=== PATIENT | male | born 1950 | race Caucasian/White ===

== ENCOUNTER 2017-11-24 14:08 | Observation (INO) ==
[2017-11-24 14:42] LABS: Basophils # 0.1 K/mcL (0.0-0.2); Basophils % 0.8 %; Eosinophils # 0.6 K/mcL (0.0-0.6); Immature Granulocytes % 0.3 % (0-4); Lymphocytes % 25.9 %; Mean Corpuscular Hemoglobin 29.5 pg (28.0-33.3); Mean Corpuscular Volume 92.1 fL (83.0-100.0); Mean Platelet Volume 9.6 fL (9.4-12.4); Monocytes # 0.8 K/mcL (0.0-1.3); Monocytes % 9.9 %; Neutrophils # 4.3 K/mcL (1.6-8.9); Platelet Count 217 K/mcL (140-400); Red Blood Count 5.43 M/mcL (4.19-5.50); Red Cell Distribution Width 14.5 % (11.5-14.5); Segmented Neutrophils % 55.1 %
[2017-11-24 15:03] LABS: Troponin I < 0.03 ng/mL (< 0.04)
[2017-11-24] MEDS ORDERED: *HR* Metoprolol 5 MG/5 ML VIAL IVP ONE (15:09)
[2017-11-24 15:19] LABS: BUN/Creatinine Ratio 10 (6-26); Blood Urea Nitrogen 12 mg/dL (8-23); Calcium 9.5 mg/dL (8.6-10.3); Carbon Dioxide 23 mEq/L (23-29); Chloride 105 mEq/L (98-107); Glucose 112 mg/dL (70-105); Osmolality,Calculated 285 (280-300); Potassium 4.3 mEq/L (3.5-5.1); Sodium 137 mEq/L (136-145); eGFR For African Americans > 60 (> 60); eGFR For Non-African Americans > 60 (> 60)
--- NOTE | 2017-11-24 15:35 | Emergency Department Note ---
Disposition Clinical Impression: Chest pain Qualifiers: Chest pain type: unspecified Qualified Code(s): R07.9 - Chest pain, unspecified Hypertension Qualifiers: Hypertension type: unspecified Qualified Code(s): I10 - Essential (primary) hypertension Disposition: Admitted As Inpatient Condition: Good Referrals: Osman Martino Jr, MD [Primary Care Provider] - Forms: ED Satisfaction Letter General Adult HPI - General Chief complaint: ED Chest Pain Stated complaint: High BP/sob/zeus Time Seen by Provider: 11/24/17 15:01 Source: patient Limitations: no limitations Nursing Notes Reviewed: Yes Vital Signs Reviewed: Yes - History of Present Illness HPI Narrative: 67-year-old male who reports that for the last proximally 2 weeks he has had hypertension. He does not have a history of hypertension and has seen his primary care physician who is having them log his blood pressures. His blood pressures have been elevated up to level of 200 systolic. Yesterday he then developed left-sided chest pain with radiation to the left shoulder and left neck. He does not have a history of chest pain and does not have a history of coronary arterial disease. His only past medical history is BPH and asthma. The only medications he takes his Flomax and albuterol. He is not having any lightheadedness. He is having shortness of breath. No nausea or vomiting or diaphoresis. Radiation: non-radiation Pain Severity: moderate Pain Scale: 5 Improves with: nothing Worsens with: nothing Associated symptoms: Reports: denies other symptoms Treatments Prior to Arrival: none - Related Data Home Medications Medication Instructions Recorded Confirmed 19 Tablet 11/27/16 11/27/16 Previous Rx's Medication Instructions Recorded Azithromycin [Zithromax] 250 mg PO DAILY #6 tablet 11/27/16 Benzonatate [Tessalon] 200 mg PO TID PRN #30 capsule 11/27/16 methylPREDNISolone [Medrol] 4 mg PO TAPER #21 tablet 11/27/16 Allergies Allergy/AdvReac Type Severity Reaction Status Date / Time Sulfa (Sulfonamide Allergy Hives Verified 11/24/17 14:12 Antibiotics) All systems ED: reviewed and negative except as stated. Constitutional: Denies: fever Cardiovascular: Reports: chest pain Respiratory: Reports: dyspnea. Denies: cough Gastrointestinal: Denies: abdominal pain Integumentary: Denies: rash Past Medical History - Past Medical History Medical history: Reports: asthma, hypertension, kidney stones Psychiatric history: Reports: no psych history - Social History Smoking Status: Never smoker Smokeless Tobacco Status: No Alcohol use: Reports: rarely Drug use: Reports: none Physical Exam - General Limitations: no limitations General appearance: alert - Head Head exam: atraumatic - Eye Eye exam: Present: normal appearance, PERRL - ENT ENT exam: normal exam, normal oropharynx - Neck Neck exam: Present: normal inspection - Chest Chest inspection: Present: normal inspection - Respiratory Respiratory exam: Present: normal lung sounds bilaterally. Absent: respiratory distress - Cardiovascular Cardiovascular exam: Present: normal rhythm, tachycardia - Abdominal Exam Abdominal exam: Present: soft, Non-Tender - Extremities Exam Extremities exam: Present: normal inspection - Neurological Exam Neurological exam: Present: alert, oriented X3 - Skin Skin exam: Present: warm, dry Course Course Narrative: CTA negative for PE/dissection. He received nitroglycerin due to his chest pain which caused his BP to drop to the 80's systolic. However, this made his chest pain completely go away. Repeat EKG shows no changes. Troponin negative. He is currently pain free and his BP has recovered to 115 systolic. Will admit for CP rule out. Vital Signs Temperature 97.7 F 11/24/17 14:12 Pulse Rate 127 11/24/17 14:12 Respiratory Rate 30 11/24/17 14:12 Blood Pressure 205/107 11/24/17 14:12 O2 Sat by Pulse Oximetry 99 11/24/17 14:12 Temperature 97.7 F 11/24/17 14:12 Pulse Rate 74 11/24/17 16:30 Respiratory Rate 20 11/24/17 16:30 Blood Pressure 116/72 11/24/17 16:30 O2 Sat by Pulse Oximetry 95 11/24/17 16:30 Oxygen Delivery Oxygen Delivery Nasal Cannula Medical Decision Making - Medical Records Medical records reviewed: Yes I reviewed the patient's medical records. - Lab Data Lab results reviewed: Yes I reviewed the patient's lab results. Result diagrams: 11/24/17 14:19 11/24/17 14:19 Lab Results 11/24/17 11/24/17 Range/Units 14:19 14:19 WBC 7.8 (4.3-11.1) K/mcL RBC 5.43 (4.19-5.50) M/mcL Hgb 16.0 (12.9-16.9) g/dL Hct 50.0 (37.5-50.1) % MCV 92.1 (83.0-100.0) fL MCH 29.5 (28.0-33.3) pg MCHC 32.0 (31.6-35.5) g/dL RDW 14.5 (11.5-14.5) % Plt Count 217 (140-400) K/mcL MPV 9.6 (9.4-12.4) fL Immature Gran % 0.3 (0-4) % Seg Neutrophils % 55.1 % Lymphocytes % 25.9 % Monocytes % 9.9 % Eosinophils % 8.0 % Basophils % 0.8 % Neutrophils # 4.3 (1.6-8.9) K/mcL Lymphocytes # 2.0 (0.6-4.6) K/mcL Monocytes # 0.8 (0.0-1.3) K/mcL Eosinophils # 0.6 (0.0-0.6) K/mcL Basophils # 0.1 (0.0-0.2) K/mcL Sodium 137 (136-145) mEq/L Potassium 4.3 (3.5-5.1) mEq/L Chloride 105 (98-107) mEq/L Carbon Dioxide 23 (23-29) mEq/L BUN 12 (8-23) mg/dL Creatinine 1.15 (0.70-1.30) mg/dL Est GFR ( Amer) > 60 (> 60) Est GFR (Non-Af Amer) > 60 (> 60) BUN/Creatinine Ratio 10 (6-26) Glucose 112 H (70-105) mg/dL Calculated Osmolality 285 (280-300) Calcium 9.5 (8.6-10.3) mg/dL Troponin I < 0.03 (< 0.04) ng/mL TSH 3.923 (0.340-5.600) mcIU/mL - Radiology Data Radiology results reviewed: Yes I reviewed the patient's radiology results. - EKG Data EKG #1 EKG attestation: Yes I reviewed and interpreted this EKG. EKG shows normal: sinus rhythm Rate: tachycardia [place]/QRS: normal Interpretation: other (Sinus tachycardia. No ST deviation.) EKG #2 EKG attestation: Yes I reviewed and interpreted this EKG. EKG shows normal: sinus rhythm Rate: normal Rhythm: NSR Interpretation: no acute changes Attestation Statement - Attestation Attestation: I examined this patient and my medical decision-making was reviewed with the Resident Physician. I agree with the documented findings, disposition and treatment plan as described except to the extent set forth below. Concerning presentation with upper left chest/left neck/left shoulder pain described as sharp, tachycardic, hypertensive. Significant concern for dissection was present, dose of Lopressor given en route to CT. Quick bedside US was done by me while waiting for a CT table to open up. Procedure, emergency bedside echocardiogram: Procedure performed by me, images obtained and interpreted by me. Cardiac images were very difficult due to pt's body habitus and time constraints. Unable to get a good PS long view, could not assess for dilated aortic root or for flap in descending aorta. Subxyphoid 4- chamber view was adequate. No effusion present, no signs of right heart strain. The left carotid was visulaized with the linear probe, no flap was identified. Was able to visualize down to the level of the clavicle. I accompanied the pt to CT. On my initial review, I did not see findings consistent with dissection and was not able to identify a large central PE. The pt was brought back to the ED still complaining of pain. We began treating for possible ACS and ordered a repeat EKG. At this point, pt is pain free. Troponin negative. Critical care time: I was directly and primarily involved in the care of this patient for 35 minutes excluding procedures.
[2017-11-24 15:40] LABS: Thyroid Stimulating Hormone 3.923 mcIU/mL (0.340-5.600)
[2017-11-24] MEDS: Nitroglycerin 0.4 MG TAB.SUBL SL PRN ×2 (15:42→15:47)
[2017-11-24] MEDS ORDERED: 0.9 % Sodium Chloride 1,000 ML IVC ONE (16:00)
[2017-11-24] MEDS ORDERED: 0.9 % Sodium Chloride 1,000 ML ONE (16:01)
[2017-11-24] MEDS ORDERED: Aspirin 81 MG TAB.CHEW PO STA (17:07)
[2017-11-24] MEDS ORDERED: *HR* Metoprolol 5 MG/5 ML VIAL IVP PRN (17:11)
[2017-11-24] MEDS ORDERED: Naloxone 0.4 MG/ML INJ IVP PRN (17:13)
--- NOTE | 2017-11-24 17:20 | Internal Med History&Physical ---
<John Paul Crump - Last Filed: 11/24/17 17:45> Date of Encounter: 11/24/17 Time of Encounter: 17:18 Assessment and Plan (1) Chest pain Current visit: Yes Status: Acute ASSESSMENT: - Presents today with left sided chest pain described as intermittently sharp. Chest pain is worsened with activity and radiates to the left shoulder and left neck. He is reporting shortness of breath and diaphoresis. He was given 1 SL nitro and reports resolution of chest pain. However per my assessment he is now beginning to feel some tightness. The chest tightness could also be r/t his h/o asthma. Risk factors include Obesity and HTN. EKG sinus tachy without st elevation or depression. PLAN: - cardiac enzymes x 2 q 6 hr - EKG now and in AM - ASA 324 now, then 81mg daily - Metoprolol 5mg IVP for SBP >160 - O2 by NC to keep SpO2 greater than 92% - CBCD, BMP in AM - Fasting lipids - SL nitro for pain - Resume - Heparin 5000 U SQ BID - 2D Echo - Nuclear stress in am - NPO after midnight, no caffeine or nicotine - Continuous tele and spo2 monitoring; NC PRN for SOB - hold cardio consult until results of TTE and stress - CBCD, BMP in tHE am Qualifiers: Chest pain type: unspecified Qualified Code(s): R07.9 - Chest pain, unspecified (2) Hypertensive urgency Current visit: Yes Status: Resolved Initially presented with HTN urgency with SBP of 205/107. HTN improved with 1 SL Nitro and he then became hypotensive but quickly rebounded with an SBP of 115. He is now hemodynamiclaly stable. As HTN improved CP improved. No prior h/o HTN, but he is reporting HTN for the last week. He has been keep a journal of his BP and working with his PCP to improve his BP. He has an outpatient appointment scheduled with cardiology -BP has now improved -Metoprolol IVP Q6hr PRN for SBP >160 -tele (3) Asthma Current visit: Yes Status: Acute Stable, continue bronchodilators Qualifiers: Asthma severity: mild Asthma persistence: intermittent Asthma complication type: unspecified Qualified Code(s): J45.20 - Mild intermittent asthma, uncomplicated (4) DVT prophylaxis Current visit: Yes Status: Acute Heparin 5000 units SC BID Internal Medicine - H&P: HPI Chief complaint: chest pain, hypertension Admitted From: Home Plans for Post Hospital Care: Home History of present illness: Mr. Quarles is a 67 year old male with a PMH of asthma, hypertension, and kidney stones. He presents today to [facility] with hypertension. He reports that he has been having issues with his blood pressure being high for the last week. He reports that he has been working with his primary care provider and keeping a journal and trying to improve his blood pressure. However, last night blood pressure continue to increase elevating the levels greater than 200 systolically twitches and developed left-sided sharp chest pain with radiation to the left neck and shoulder. He does not have any prior heart history. He Reports that the chest pain is exacerbated with activity and associated with shortness of breath as well as diaphoresis. He denies any recent cardiac workup. He denies any constitutional symptoms, abdominal pain, N/V/D, extremity swelling/pain, lightheadedness, syncope, palpitations, or irregular rhythm. CXR in ED shows no acute pulmonary disease, initial troponin negative. While in the ED he was given 1 SL nitro and his BP improved and his chest pain subsided. Past Med Surg Social Fam HX - Past Medical History Medical history: asthma, hypertension, kidney stones Psychiatric history: no psych history - Social History Smoking Status: Never smoker Smokeless Tobacco Status: No Alcohol use: rarely Drug use: none - Family History Father Living Status: Hx Family Cardiac Disorders: Yes (CHF) Mother Hx Family Endocrine Disorder: Yes (diabetes) Internal Medicine - H&P: Meds Albuterol Sulfate [Proventil Hfa] 2 puff IH QID PRN 11/24/17 [History] Aspirin Enteric Coated [Aspirin EC] 162 mg PO DAILY 11/24/17 [History] Diclofenac Sodium [Voltaren] 75 mg PO BID 11/24/17 [History] Multivitamin [One Daily Multivitamin] 1 each PO DAILY 11/24/17 [History] Nitroglycerin [Nitrostat] 0.4 mg PO Q5M PRN 11/24/17 [History] [place]-3/Dha/Epa/Fish Oil [Fish Oil 1,000 mg Softgel] 1,000 mg PO DAILY 11/24/17 [History] Tamsulosin [Flomax] 0.4 mg PO DAILY 11/24/17 [History] 3 Allergy/AdvReac Type Severity Reaction Status Date / Time Sulfa (Sulfonamide Allergy Hives Verified 11/24/17 14:12 Antibiotics) All Systems PM: A 10-system review of systems was performed and is negative for pertinent findings except as documented above in the HPI. - Constitutional Constitutional: as per HPI - EENT Eyes: no change in vision, no discharge, no pain, no photophobia Ears: no ear discharge, no ear pain, no tinnitus Nose, mouth and throat: no dysphagia, no nasal discharge, no neck pain, no sore throat - Cardiovascular Cardiovascular ROS IM: as per HPI, chest pain, diaphoresis, dyspnea, dyspnea on exertion, no edema, no irregular heart rhythm, no lightheadedness, no orthopnea , no palpitations, no syncope - Respiratory Respiratory: cough (non-productive h/o asthma; reports cough as chronic), dyspnea, dyspnea on exertion, no hemoptysis, no wheezing, no pain on inspiration , no chest congestion, no excessive phlegm production, no pain with cough - Gastrointestinal Gastrointestinal: no abdominal pain, no diarrhea, no hematemesis, no hematochezia, no melena, no nausea, no vomiting - Genitourinary Genitourinary ROS male: no difficulty urinating, no dysuria, no flank pain - Musculoskeletal Musculoskeletal ROS IM: no numbness, no tingling - Integumentary Integumentary IM: no rash, no unusual bruising - Neurological Neurological ROS: no confusion, no convulsions, no focal weakness, no numbness, no tingling, no tremor(s) - Constitutional Vitals: Temp Pulse Resp BP Pulse Ox 97.7 F 74 20 123/81 95 11/24/17 14:12 11/24/17 16:30 11/24/17 17:08 11/24/17 17:08 11/24/17 16:30 General appearance: Present: cooperative, A&O X 3, no acute distress, obese, answers questions appropriately - Head Head exam: Present: atraumatic, normocephalic - Eye Eye exam: Present: PERRL, conjuntiva pink, sclera anicteric Pupils: Present: PERRL - Neck Neck exam general surgery: Present: supple, trachea midline. Absent: lymphadenopathy - Respiratory Respiratory exam: Present: CTAB. Absent: accessory muscle use, rales, rhonchi, wheezes - Cardiovascular Cardiovascular exam: Present: RRR, +S1, +S2. Absent: diastolic murmur, gallop, rubs, systolic murmur - GI/Abdominal GI/Abdominal exam: Present: normal bowel sounds, soft, no peritoneal signs. Absent: distended, tenderness Additional comments: round, obese - Extremities Exam Extremities exam: Present: warm, radial pulses palpable and symmetrical. Absent : calf tenderness, cyanotic, pedal edema - Neurological Exam Neurological exam: Present: alert, oriented X3. Absent: pronater drift, facial droop, speech deficit - Skin Skin exam: Present: dry, intact Internal Med - H&P Results - Labs CBC & Chem 7: 11/24/17 14:19 11/24/17 14:19 - EKG Data -: EKG Interpreted by Myself EKG shows normal: sinus rhythm Rate: tachycardia - EKG Data Prior EKG available for review: yes When compared to previous EKG: there is no significant change EKG comments: Sinus tachycardia no ST elevation or depression 11/24/17 17:23 - Impressions Impressions Chest X-Ray 11/24/17 14:19 IMPRESSION: No acute process. D/ / Itzel Flowers MD / Itzel Flowers MD Interpreting Provider: Itzel Flowers MD Chest CTA 11/24/17 15:01 IMPRESSION: Negative for acute pulmonary embolism. Moderate to severe airway inflammation may be seen with asthma, bronchitis or smoking. No consolidative airspace disease. Asymmetric gynecomastia. Fatty liver. D/ / Atilio Freeman / Atilio Freeman Interpreting Provider: Atilio Freeman <David Stringer - Last Filed: 11/24/17 18:34> Date of Encounter: 11/24/17 Internal Medicine - H&P: HPI History of present illness: Mr. Quarles is a 67 year old male All Systems PM: A 10-system review of systems was performed and is negative for pertinent findings except as documented above in the HPI. - Constitutional Vitals: Temp Pulse Resp BP Pulse Ox 98.5 F 90 18 117/80 92 11/24/17 17:51 11/24/17 17:51 11/24/17 17:51 11/24/17 17:51 11/24/17 17:51 Internal Med - H&P Results - Labs CBC & Chem 7: 11/24/17 14:19 11/24/17 14:19 - Attending Attestation I have personally performed a face to face evaluation on this patient. I have reviewed and agree with the care plan provided by OFFICE SUPPORT SPECIALIST John Paul Crump. History and Exam by me shows: Mr. Quarles is a 67 year old male with a PMH of asthma, hypertension, and kidney stones pt presented to ER with Lft chest wall pain and SOB from last 10 days. He was give Nitro in the ER and his chest pain resolved now. Gen: A, A, O x 3 Chest: Diminished BS b/l, no crackles..Mild wheezing Heart: S1S2+ RRR No murmus a/p 1. Acute CP Need to r/o ACS on Tele check serial trop r/o PE Stress test in AM 2. Asthma.. Mild exacerbation will put him on kaushal duoneb and Steroid nebs too
[2017-11-24] MEDS: *HR* Heparin 5,000 UNIT/ML VIAL SQ SCH (18:11)
[2017-11-24] MEDS: Ipratropium/Albuterol Neb 3 ML IH PRN (19:24)
[2017-11-24 19:39] LABS: INR 1.1; Prothrombin Time 11.6 Seconds (9.4-12.1)
[2017-11-24] MEDS: Budesonide Neb 0.5 MG/2 ML IH SCH (21:30)
[2017-11-24] MEDS ORDERED: Budesonide Neb 0.5 MG/2 ML IH SCH (22:00)
[2017-11-25 01:21] LABS: Basophils % 0.5 %; Eosinophils # 0.6 K/mcL (0.0-0.6); Eosinophils % 8.5 %; Immature Granulocytes % 0.3 % (0-4); Lymphocytes # 2.1 K/mcL (0.6-4.6); Lymphocytes % 29.1 %; Mean Corpuscular HGB Conc 31.8 g/dL (31.6-35.5); Mean Corpuscular Hemoglobin 29.4 pg (28.0-33.3); Mean Corpuscular Volume 92.6 fL (83.0-100.0); Mean Platelet Volume 10.2 fL (9.4-12.4); Monocytes # 0.7 K/mcL (0.0-1.3); Monocytes % 9.7 %; Neutrophils # 3.8 K/mcL (1.6-8.9); Platelet Count 205 K/mcL (140-400); Red Blood Count 4.86 M/mcL (4.19-5.50); Red Cell Distribution Width 14.6 % (11.5-14.5); Segmented Neutrophils % 51.9 %
[2017-11-25 01:27] LABS: Hemoglobin 14.3 g/dL (12.9-16.9)
[2017-11-25 01:40] LABS: BUN/Creatinine Ratio 11 (6-26); Blood Urea Nitrogen 13 mg/dL (8-23); Calcium 8.7 mg/dL (8.6-10.3); Carbon Dioxide 26 mEq/L (23-29); Chloride 107 mEq/L (98-107); Chol/HDL Ratio 6.5 (0-4.9); Cholesterol 214 mg/dL (< 200); Glucose 132 mg/dL (70-105); HDL Cholesterol 33 mg/dL (40-59); LDL Cholesterol,Calculated 150 mg/dL (0-99); Osmolality,Calculated 290 (280-300); Potassium 4.1 mEq/L (3.5-5.1); Sodium 139 mEq/L (136-145); Triglycerides 154 mg/dL (< 150); eGFR For African Americans > 60 (> 60); eGFR For Non-African Americans 59 (> 60)
[2017-11-25] MEDS: Ipratropium/Albuterol Neb 3 ML IH PRN ×2 (04:57→15:11)
[2017-11-25] MEDS: *HR* Heparin 5,000 UNIT/ML VIAL SQ SCH ×2 (05:54→17:19)
[2017-11-25] MEDS ORDERED: Regadenoson 0.4 MG/5 ML SYRINGE IVP ONE (06:51)
[2017-11-25] MEDS: Budesonide Neb 0.5 MG/2 ML IH SCH ×2 (09:48→21:15)
[2017-11-25] MEDS ORDERED: Perflutren Lipid Microsphere 1.3 ML in 0.9 % Sodium Chloride 8.7 ML IVP ONE (10:42)
[2017-11-25] MEDS: Aspirin Enteric Coated 81 MG Tablet PO SCH (11:51)
[2017-11-25] MEDS: Multivit/Ca/Min/Fe/FA 1 TAB TABLET PO SCH (11:52)
--- NOTE | 2017-11-25 15:42 | Internal Med Progress Note ---
Date of Encounter: 11/25/17 Time of Encounter: 15:40 - Assessment and plan (1) Asthma Current Visit: Yes Status: Acute Assessment and plan: Continue bronchodilators satting well on 1 L nasal cannula Qualifiers: Asthma severity: mild Asthma persistence: intermittent Asthma complication type: unspecified Qualified Code(s): J45.20 - Mild intermittent asthma, uncomplicated (2) Chest pain Current Visit: Yes Status: Acute Assessment and plan: Presented with left-sided chest pain described as intermittently sharp. Pain worsens with activity and radiated into the left shoulder and left neck. He also had some shortness of breath and sweats. He was given a sublingual nitroglycerin 1 in reporting less chest pain. Slight chest tightness returned and could be related to his asthma. He is obese and has high blood pressure. EKG sinus tachycardia without ST elevation or depression. Troponins are negative. Stress test and process step 1 has been completed, step 2 will be completed on Monday Aspirin 324 mg in the ED and now 81 mg daily Metoprolol 5 mg IV push for systolic blood pressure greater than 150 O2 to keep sats greater than 92%. Next line sublingual nitroglycerin as needed for chest pain Heparin 5000 units subcutaneous twice a day Check an echo Continuous telemetry monitoring. Monitor labs Lipid panel triglycerides 154, cholesterol 214, LDL 150, HDL 33, TSH 3.9-3 Qualifiers: Chest pain type: unspecified Qualified Code(s): R07.9 - Chest pain, unspecified (3) DVT prophylaxis Current Visit: Yes Status: Acute Assessment and plan: Heparin subcutaneous (4) Hypertension Current Visit: Yes Status: Acute Assessment and plan: Patient was admitted with accelerated hypertension but now his blood pressure is well controlled on his medication regime. According to the note he initially presented with a pressure of 205/107. Blood pressure improved with one sublingual nitroglycerin and then he became hypotensive which quickly rebounded with a systolic blood pressure 1:15. He was then hemodynamically stable. As his high blood pressure improved so did his chest pain. He has no prior history of hypertension but he is reporting high blood pressure for the past week and he has been keeping a journal of his blood pressure and working with his PCP to improve his blood pressure. He has an outpatient appointment scheduled with cardiology. Continue metipranolol IV push every 6 hours when necessary for systolic blood pressure greater than 160. Qualifiers: Hypertension type: essential hypertension Qualified Code(s): I10 - Essential (primary) hypertension (5) Obesity Current Visit: Yes Status: Acute Assessment and plan: Lifestyle changes recommended Qualifiers: Obesity type: unspecified obesity type Serious obesity comorbidity presence : without serious comorbidity Body mass index: BMI 45.0-49.9 Qualified Code( s): E66.9 - Obesity, unspecified; Z68.42 - Body mass index (BMI) 45.0-49.9, adult; Z68.42 - Body mass index (BMI) 45.0-49.9, adult; Z68.42 - Body mass index (BMI) 45.0-49.9, adult; Z68.42 - Body mass index (BMI) 45.0-49.9, adult - Subjective Interval history: Patient is sitting up in the bed on a breathing treatment with some visitors at the bedside. He has no complaints. He has no questions. - Constitutional Vitals: Temp Pulse Resp BP Pulse Ox 97.6 F 81 16 143/83 94 11/25/17 12:34 11/25/17 12:34 11/25/17 12:34 11/25/17 12:34 11/25/17 12:34 General appearance: Present: cooperative, A&O X 3, no acute distress, obese, answers questions appropriately - Head Head exam: Present: atraumatic, normocephalic - Eye Eye exam: Present: PERRL, conjuntiva pink, sclera anicteric Pupils: Present: PERRL - Neck Neck exam general surgery: Present: supple, trachea midline. Absent: lymphadenopathy - Respiratory Respiratory exam: Present: decreased breath sounds, wheezes. Absent: accessory muscle use, rales, rhonchi - Cardiovascular Cardiovascular exam: Present: RRR, +S1, +S2. Absent: diastolic murmur, gallop, rubs, systolic murmur - GI/Abdominal GI/Abdominal exam: Present: normal bowel sounds, soft, no peritoneal signs. Absent: distended, tenderness - Extremities Exam Extremities exam: Present: pedal edema, warm, radial pulses palpable and symmetrical. Absent: calf tenderness, cyanotic Additional comments: Venous stasis changes sugars both lower extremities - Neurological Exam Neurological exam: Present: CN II-XII intact, oriented X3, no focal deficits. Absent: pronater drift, facial droop, speech deficit - Skin Skin exam: Present: dry, intact, warm Internal Medicine: Result - Labs CBC & Chem 7: 11/25/17 00:45 11/25/17 00:45 Labs: Short CBC 11/25/17 Range/Units 00:45 WBC 7.3 (4.3-11.1) K/mcL Hgb 14.3 D (12.9-16.9) g/dL Hct 45.0 (37.5-50.1) % Plt Count 205 (140-400) K/mcL Neutrophils # 3.8 (1.6-8.9) K/mcL BMP 11/25/17 00:45 Sodium 139 Potassium 4.1 Chloride 107 Carbon Dioxide 26 BUN 13 Creatinine 1.23 Glucose 132 H Calcium 8.7 Cardiac Enzymes 11/24/17 11/25/17 Range/Units 18:43 00:45 Troponin I < 0.03 < 0.03 (< 0.04) ng/mL - ABG Interpretation ABG results: PT/INR, D-dimer PT 11.6 Seconds (9.4-12.1) 11/24/17 18:43 Consult Discharge Plan - Plan Referrals: Osman Martino Jr, MD [Primary Care Provider] -
[2017-11-25] MEDS ORDERED: *HR* Dextrose 50 % in Water (Syg) 50 ML SYRINGE IVP PRN (17:35)
[2017-11-25] MEDS ORDERED: D5% in Water 1,000 ML IVC PRN (17:35)
[2017-11-25] MEDS ORDERED: Dextrose Gel 15 GM/37.5 ML TUBE PO PRN ×2 (17:35)
[2017-11-26] MEDS: *HR* Heparin 5,000 UNIT/ML VIAL SQ SCH ×2 (05:37→17:08)
[2017-11-26 05:56] LABS: Hematocrit 44.4 % (37.5-50.1); Hemoglobin 14.1 g/dL (12.9-16.9); Mean Corpuscular HGB Conc 31.8 g/dL (31.6-35.5); Mean Corpuscular Hemoglobin 29.6 pg (28.0-33.3); Mean Corpuscular Volume 93.1 fL (83.0-100.0); Mean Platelet Volume 10.3 fL (9.4-12.4); Platelet Count 187 K/mcL (140-400); Red Blood Count 4.77 M/mcL (4.19-5.50); Red Cell Distribution Width 14.4 % (11.5-14.5)
[2017-11-26] MEDS: Ipratropium/Albuterol Neb 3 ML IH PRN ×3 (06:04→19:41)
[2017-11-26 06:17] LABS: BUN/Creatinine Ratio 13 (6-26); Blood Urea Nitrogen 13 mg/dL (8-23); Calcium 8.8 mg/dL (8.6-10.3); Carbon Dioxide 24 mEq/L (23-29); Chloride 107 mEq/L (98-107); Glucose 136 mg/dL (70-105); Osmolality,Calculated 286 (280-300); Sodium 137 mEq/L (136-145); eGFR For African Americans > 60 (> 60); eGFR For Non-African Americans > 60 (> 60)
[2017-11-26] MEDS: Insulin LISPRO 300 UNITS/3 ML VIAL SQ SCH ×3 (08:38→17:05)
[2017-11-26] MEDS: Multivit/Ca/Min/Fe/FA 1 TAB TABLET PO SCH (08:39)
[2017-11-26] MEDS: Aspirin Enteric Coated 81 MG Tablet PO SCH (08:39)
[2017-11-26] MEDS: Budesonide Neb 0.5 MG/2 ML IH SCH ×2 (09:36→19:41)
[2017-11-26 10:53] LABS: Estimated Average Glucose 128 mg/dl; Hemoglobin A1C 6.1 %
--- NOTE | 2017-11-26 13:16 | Internal Med Progress Note ---
Date of Encounter: 11/26/17 Time of Encounter: 13:13 - Assessment and plan (1) Asthma Current Visit: Yes Status: Acute Assessment and plan: Continue bronchodilators, satting well on room air Qualifiers: Asthma severity: mild Asthma persistence: intermittent Asthma complication type: unspecified Qualified Code(s): J45.20 - Mild intermittent asthma, uncomplicated (2) Chest pain Current Visit: Yes Status: Acute Assessment and plan: Presented with left-sided chest pain described as intermittently sharp. Pain worsens with activity and radiated into the left shoulder and left neck. He also had some shortness of breath and sweats. He was given a sublingual nitroglycerin 1 in reporting less chest pain. Slight chest tightness returned and could be related to his asthma. He is obese and has high blood pressure. EKG sinus tachycardia without ST elevation or depression. Troponins are negative. Stress test and process step 1 has been completed, step 2 will be completed on Monday Aspirin 324 mg in the ED and now 81 mg daily Metoprolol 5 mg IV push for systolic blood pressure greater than 150 O2 to keep sats greater than 92%. Next line sublingual nitroglycerin as needed for chest pain Heparin 5000 units subcutaneous twice a day echo report reviewed with LVEF 55-60%. Not all LV wall segments are optimally visualized. Mild left ventricular diastolic dysfunction. RV is dilated. Function appears normal. Mild mitral regurgitation. Suboptimal TR signal to estimate RVSP. IVC is not visualized. Left ventricular wall motion rest echo findings are the apex, apical lateral mid inferior lateral and basal inferior lateral martinez were not visualized I will other wall segments showed normal motion Continuous telemetry monitoring. Monitor labs Lipid panel triglycerides 154, cholesterol 214, LDL 150, HDL 33, TSH 3.9-3 Qualifiers: Chest pain type: unspecified Qualified Code(s): R07.9 - Chest pain, unspecified (3) DVT prophylaxis Current Visit: Yes Status: Acute Assessment and plan: Heparin subcut (4) Hypertension Current Visit: Yes Status: Acute Assessment and plan: Patient was admitted with accelerated hypertension but now his blood pressure is well controlled on his medication regime. According to the note he initially presented with a pressure of 205/107. Blood pressure improved with one sublingual nitroglycerin and then he became hypotensive which quickly rebounded with a systolic blood pressure 1:15. He was then hemodynamically stable. As his high blood pressure improved so did his chest pain. He has no prior history of hypertension but he is reporting high blood pressure for the past week and he has been keeping a journal of his blood pressure and working with his PCP to improve his blood pressure. He has an outpatient appointment scheduled with cardiology. Continue metipranolol IV push every 6 hours when necessary for systolic blood pressure greater than 160. Blood pressure is currently well controlled He was to see dental instrument maker on the as an outpatient for blood pressure consult Qualifiers: Hypertension type: essential hypertension Qualified Code(s): I10 - Essential (primary) hypertension (5) Obesity Current Visit: Yes Status: Acute Assessment and plan: Lifestyle changes diet and activity recommended Qualifiers: Obesity type: unspecified obesity type Serious obesity comorbidity presence : without serious comorbidity Body mass index: BMI 45.0-49.9 Qualified Code( s): E66.9 - Obesity, unspecified; Z68.42 - Body mass index (BMI) 45.0-49.9, adult; Z68.42 - Body mass index (BMI) 45.0-49.9, adult; Z68.42 - Body mass index (BMI) 45.0-49.9, adult; Z68.42 - Body mass index (BMI) 45.0-49.9, adult (6) Hyperglycemia Current Visit: Yes Status: Acute Assessment and plan: Accu checks before meals and at bedtime with low-dose sliding scale coverage as needed. Patient is not a known diabetic Hgb A1c is 6.1 Defer to primary care physician for management - Subjective Interval history: Patient is sitting up getting ready to take a shower. He has no voiced complaints. He said he has a twinge of midsternal chest discomfort every once in a while but nothing consistent. No radiation. No sweats, fever, chills, abdominal pain, shortness of breath or syncope/dizziness. - Constitutional Vitals: Temp Pulse Resp BP Pulse Ox 98.7 F 60 16 124/78 95 11/26/17 11:44 11/26/17 11:44 11/26/17 11:44 11/26/17 11:44 11/26/17 11:44 General appearance: Present: cooperative, A&O X 3, no acute distress, obese, answers questions appropriately - Head Head exam: Present: atraumatic, normocephalic - Eye Eye exam: Present: PERRL, conjuntiva pink, sclera anicteric Pupils: Present: PERRL - Neck Neck exam general surgery: Present: supple, trachea midline. Absent: lymphadenopathy - Respiratory Respiratory exam: Present: CTAB. Absent: accessory muscle use, rales, rhonchi, wheezes - Cardiovascular Cardiovascular exam: Present: RRR, +S1, +S2. Absent: diastolic murmur, gallop, rubs, systolic murmur - GI/Abdominal GI/Abdominal exam: Present: normal bowel sounds, soft, no peritoneal signs. Absent: distended, tenderness - Extremities Exam Extremities exam: Present: warm, radial pulses palpable and symmetrical. Absent : calf tenderness, cyanotic, pedal edema - Neurological Exam Neurological exam: Present: CN II-XII intact, oriented X3, no focal deficits. Absent: pronater drift, facial droop, speech deficit - Skin Skin exam: Present: dry, intact, normal color, warm Internal Medicine: Result - Labs CBC & Chem 7: 11/26/17 04:41 11/26/17 04:41 Labs: Short CBC 11/26/17 Range/Units 04:41 WBC 7.0 (4.3-11.1) K/mcL Hgb 14.1 (12.9-16.9) g/dL Hct 44.4 (37.5-50.1) % Plt Count 187 (140-400) K/mcL [facility] 11/26/17 04:41 Sodium 137 Potassium 4.0 Chloride 107 Carbon Dioxide 24 BUN 13 Creatinine 1.02 Glucose 136 H Calcium 8.8 - ABG Interpretation ABG results: PT/INR, D-dimer PT 11.6 Seconds (9.4-12.1) 11/24/17 18:43 - Impressions Impressions Echocardiogram 11/24/17 17:07 Impressions: LVEF 55-60%. Not all LV wall segments are optimally visualized. Mild left ventricular diastolic dysfunction. RV is dilated. Function appears normal. Mild mitral regurgitation. Suboptimal TR signal to estimate RVSP. IVC is not visualized. Left Ventricular Wall Motion: Rest Echo Findings The apex, apical lateral, mid inferior lateral and basal inferior lateral martinez were not visualized. All other wall segments showed normal motion. Findings: Study Quality * Technically sub-optimal due to body habitus. ECG Findings * Normal sinus rhythm. Left Ventricle * Mild left ventricular diastolic dysfunction. * LVEF 55-60%. * Normal LV size. * Suboptimal measurements for wall thickness in PLAX view. Right Ventricle * RV is dilated. Function appears normal. Left Atrium * Left atrium is not well visualized. Right Atrium * Right atrium is not well visualized. Aortic Valve * No aortic regurgitation. * Aortic valve not well visualized. * No aortic stenosis. Mitral Valve * Normal mitral valve structure. * No mitral stenosis. * Mild mitral regurgitation. Tricuspid Valve * No tricuspid regurgitation. * Tricuspid valve not well visualized. Pulmonic Valve * Pulmonic valve is not well visualized. * No pulmonic stenosis. * No pulmonic regurgitation. Pulmonary Artery * Pulmonary artery not well visualized. Aorta * Not well visualized. Pericardium * There is no pericardial effusion present. Interatrial Septum * Interatrial septum not well evaluated. IVC * The IVC is not well evaluated. Consult Discharge Plan - Plan Referrals: Osman Martino Jr, MD [Primary Care Provider] -
[2017-11-27] MEDS: *HR* Heparin 5,000 UNIT/ML VIAL SQ SCH ×2 (05:44→16:54)
[2017-11-27] MEDS: Ipratropium/Albuterol Neb 3 ML IH PRN ×4 (05:47→21:56)
[2017-11-27] MEDS: Insulin LISPRO 300 UNITS/3 ML VIAL SQ SCH ×3 (07:21→16:53)
[2017-11-27] MEDS: Multivit/Ca/Min/Fe/FA 1 TAB TABLET PO SCH (08:25)
[2017-11-27] MEDS: Aspirin Enteric Coated 81 MG Tablet PO SCH (08:25)
[2017-11-27] MEDS ORDERED: Acetaminophen 325 MG TABLET PO PRN (08:32)
--- NOTE | 2017-11-27 10:20 | Cardiology Consult Note ---
<Maricel Hou - Last Filed: 11/27/17 10:38> Date of Encounter: 11/27/17 Time of Encounter: 10:00 Assessment and Plan (1) Chest pain Current Visit: Yes Status: Acute Per cardiology: -Admitted with exdertional chest pain. -Also noted increased shortness of breath and worsening fatigue. -Troponins negative x3. -NO acute ischemic ECG changes. -Stress test abnormal. -TTE with LVEF 55-60%, mild diastolic dysfunction, RV dilated with normal function, mild MR, no visualized segmental wall motion abnormalities. -On asa and simvastatin. -With concerning symptoms, and abnormal stress test, plan for LHC. Risks versus benefits of LHC explained to pateint and . States understanding and agreeable to proceed. -Will start beta lisandra. Will switch simvastatin to atorvastatin. Will change ASA to 81mg daily. Qualifiers: Chest pain type: unspecified Qualified Code(s): R07.9 - Chest pain, unspecified (2) Abnormal stress test Current Visit: Yes Status: Acute Per cardiology: -Stress with ischemia noted inferior wall. Visual TID. -PLan for LHC, as above. -Further recommendations pending LHC. Discussion w patient/family: The assessment and plan as outlined above was discussed with the patient and/or family members who expressed understanding and agreement. All questions were answered. Thank you for involving us in the care of your patient. Please call with any questions. Discussed and reviewed with . History of Present Illness Consult date: 11/27/17 Requesting physician: Genevieve Pettit Consult reason: abnormal stress Chief complaint: chest pain, shortness of breath History of present illness: Mr. Quarles is a 67 year old male with a relevant past medical history of HTN, obesity. Patient presented to [facility] with complaints of worsening shortness of breath with exertion. States has been occuring for the past 3-4 weeks. Patient also reports intermittent chest pain with exertion. Relieved at rest. Reports worsening fatigue. Denies current chest pain. Patient also states BPs at home have been high. Past Med Surg Social Fam HX - Past Medical History Attestation: Yes The following information was validated with the patient. Source: patient, old records reviewed, obtained from family Medical history: asthma, hypertension, kidney stones Psychiatric history: no psych history - Social History Smoking Status: Never smoker Smokeless Tobacco Status: No Alcohol use: rarely Drug use: none - Family History Father Living Status: Hx Family Cardiac Disorders: Yes (CHF) Mother Hx Family Endocrine Disorder: Yes (diabetes) Medications and Allergies Albuterol Sulfate [Proventil Hfa] 2 puff IH QID PRN 11/24/17 [History] Aspirin Enteric Coated [Aspirin EC] 162 mg PO DAILY 11/24/17 [History] Diclofenac Sodium [Voltaren] 75 mg PO BID 11/24/17 [History] Multivitamin [One Daily Multivitamin] 1 each PO DAILY 11/24/17 [History] Nitroglycerin [Nitrostat] 0.4 mg PO Q5M PRN 11/24/17 [History] [place]-3/Dha/Epa/Fish Oil [Fish Oil 1,000 mg Softgel] 1,000 mg PO DAILY 11/24/17 [History] Tamsulosin [Flomax] 0.4 mg PO DAILY 11/24/17 [History] 3 Allergy/AdvReac Type Severity Reaction Status Date / Time Sulfa (Sulfonamide Allergy Hives Verified 11/24/17 14:12 Antibiotics) All Systems Review: The remainder of the systems were reviewed and are negative - Constitutional Constitutional: fatigue - Cardiovascular Cardiovascular: as per HPI, chest pain with exertion, dyspnea on exertion Physical Examination Vital Signs, Last 4 Hours Temp Pulse Resp BP Pulse Ox 11/27/17 07:17 97.8 F 80 18 146/70 96 General: Conversant, No Apparent Distress HEENT: Atraumatic, Normocephaly, Mucus Membranes Moist Neck: No JVD, Normal carotid pulses Cardiac: Reg Rate and Rhythm, Normal S1 and S2, No Murmur Lungs: Normal Breath Sounds, No Wheeze, Rales, Rhonchi Neuro: Alert and responsive, No focal deficits noted Abdomen: Soft, Non-Tender Skin: No rashes noted on visualized skin Musculoskeletal: No Chest Wall Tenderness Extremities: No Clubbing, No Cyanosis, No Edema, Normal Pulses Results 11/26/17 04:41 11/26/17 04:41 Impressions Echocardiogram 11/24/17 17:07 Impressions: LVEF 55-60%. Not all LV wall segments are optimally visualized. Mild left ventricular diastolic dysfunction. RV is dilated. Function appears normal. Mild mitral regurgitation. Suboptimal TR signal to estimate RVSP. IVC is not visualized. Left Ventricular Wall Motion: Rest Echo Findings The apex, apical lateral, mid inferior lateral and basal inferior lateral martinez were not visualized. All other wall segments showed normal motion. Findings: Study Quality * Technically sub-optimal due to body habitus. ECG Findings * Normal sinus rhythm. Left Ventricle * Mild left ventricular diastolic dysfunction. * LVEF 55-60%. * Normal LV size. * Suboptimal measurements for wall thickness in PLAX view. Right Ventricle * RV is dilated. Function appears normal. Left Atrium * Left atrium is not well visualized. Right Atrium * Right atrium is not well visualized. Aortic Valve * No aortic regurgitation. * Aortic valve not well visualized. * No aortic stenosis. Mitral Valve * Normal mitral valve structure. * No mitral stenosis. * Mild mitral regurgitation. Tricuspid Valve * No tricuspid regurgitation. * Tricuspid valve not well visualized. Pulmonic Valve * Pulmonic valve is not well visualized. * No pulmonic stenosis. * No pulmonic regurgitation. Pulmonary Artery * Pulmonary artery not well visualized. Aorta * Not well visualized. Pericardium * There is no pericardial effusion present. Interatrial Septum * Interatrial septum not well evaluated. IVC * The IVC is not well evaluated. Active Medications Acetaminophen (Tylenol) 650 mg PO Q6HR PRN PRN Reason: Pain Stop: 05/29/18 08:33 Albuterol Sulfate (Albuterol Inhaler) 2 puff IH QID PRN PRN Reason: Shortness Of Breath Stop: 05/26/18 17:13 Albuterol/Ipratropium (Duoneb) 3 ml IH [id number] PRN PRN Reason: Shortness Of Breath Stop: 05/26/18 20:01 Last Admin: 11/27/17 05:47 Dose: 3 ml Aspirin (Aspirin Ec) 162 mg PO DAILY [facility] Stop: 05/27/18 09:01 Last Admin: 11/27/17 08:25 Dose: 162 mg Budesonide (Pulmicort Neb) 0.5 mg IH BIDR ANIYA Stop: 05/26/18 20:01 Last Admin: 11/26/17 19:41 Dose: 0.5 mg Dextrose/Water (Dextrose 50% (Syg)) 25 ml IVP AD PRN PRN Reason: Hypoglycemia Stop: 05/27/18 17:36 Glucagon (Glucagen) 1 mg IM ONCE PRN PRN Reason: Hypoglycemia Stop: 05/27/18 17:36 Glucose (Gluctose) 15 gm PO ONCE PRN PRN Reason: Hypoglycemia Stop: 05/27/18 17:36 Glucose (Gluctose) 30 gm PO ONCE PRN PRN Reason: Hypoglycemia Stop: 05/27/18 17:36 Heparin Sodium (Porcine) (Heparin) 5,000 unit SQ Q12HCO [facility] Stop: 05/26/18 18:01 Last Admin: 11/27/17 05:44 Dose: 5,000 unit Dextrose (Dextrose 5%) 1,000 mls @ 100 mls/hr IVC .Q10H PRN PRN Reason: HYPOGLYCEMIA Stop: 05/27/18 17:36 Insulin Human Lispro (Humalog) 0 units SQ TIDAC [facility] PRN Reason: Protocol Stop: 05/28/18 07:31 Last Admin: 11/27/17 07:21 Dose: Not Given Metoprolol Tartrate (Lopressor) 5 mg IVP Q6H PRN PRN Reason: Hypertension Stop: 05/26/18 17:16 Multivitamins/Calcium (Thera M Plus) 1 tab PO DAILY [facility] Stop: 05/27/18 09:01 Last Admin: 11/27/17 08:25 Dose: 1 tab Naloxone HCl (Narcan) 0.4 mg IVP Q2MIN PRN PRN Reason: SEE COMMENTS Stop: 05/26/18 17:14 Nitroglycerin (Nitroglycerin) 0.4 mg SL Q5MIN PRN PRN Reason: Chest Pain Stop: 05/26/18 15:33 Last Admin: 11/24/17 15:47 Dose: 0.4 mg Simvastatin (Zocor) 40 mg PO QPM [facility] PRN Reason: Protocol Stop: 05/26/18 18:01 Last Admin: 11/26/17 17:08 Dose: 40 mg Tamsulosin HCl (Flomax) 0.4 mg PO DAILY [facility] PRN Reason: Protocol Stop: 05/27/18 09:01 Last Admin: 11/27/17 08:25 Dose: 0.4 mg Laboratory Tests 11/24/17 11/24/17 11/25/17 14:19 18:43 00:45 Hgb Creatinine Troponin I < 0.03 < 0.03 < 0.03 LDL Cholesterol, Calc 11/25/17 11/26/17 11/26/17 00:45 04:41 04:41 Hgb 14.1 Creatinine 1.02 Troponin I LDL Cholesterol, Calc 150 H - Imaging and Cardiology Chest Xray: report reviewed Stress Test: report reviewed Echo: report reviewed - EKG Interpretation EKG results cardiology: personally reviewed (ECG with SR, HR 80.), other ( Telemetry reviewed with average HR previous 12 hours noted to be 84, SR. PVCs and PACs noted.) Consult Discharge Plan - Plan Referrals: Osman Martino Jr, MD [Primary Care Provider] - <Ramana Louis - Last Filed: 11/27/17 12:01> Date of Encounter: 11/27/17 - Attending Attestation 67 YOM with multiple CRFs and typical angina found to have an abnormal stress test with TID and inferior ischemia. R/B/A d/w patient and he agrees to proceed with a [facility] Assessment and Plan Discussion w patient/family: The assessment and plan as outlined above was discussed with the patient and/or family members who expressed understanding and agreement. All questions were answered. Thank you for involving us in the care of your patient. Please call with any questions. History of Present Illness History of present illness: Mr. Quarles is a 67 year old male All Systems Review: The remainder of the systems were reviewed and are negative Physical Examination Vital Signs, Last 4 Hours Temp Pulse Resp BP Pulse Ox 11/27/17 11:44 98.1 F 93 18 169/93 93 11/27/17 10:56 18 93 Results 11/26/17 04:41 11/26/17 04:41
[2017-11-27] MEDS: Budesonide Neb 0.5 MG/2 ML IH SCH ×2 (10:55→21:56)
--- NOTE | 2017-11-27 13:47 | Internal Med Progress Note ---
Date of Encounter: 11/27/17 Time of Encounter: 13:45 - Assessment and plan (1) Asthma Current Visit: Yes Status: Acute Assessment and plan: Continue bronchodilators, 02 sats good on room air Qualifiers: Asthma severity: mild Asthma persistence: intermittent Asthma complication type: unspecified Qualified Code(s): J45.20 - Mild intermittent asthma, uncomplicated (2) Chest pain Current Visit: Yes Status: Acute Assessment and plan: Presented with left-sided chest pain described as intermittently sharp. Pain worsens with activity and radiated into the left shoulder and left neck. He also had some shortness of breath and sweats. He was given a sublingual nitroglycerin 1 in reporting less chest pain. Slight chest tightness returned and could be related to his asthma. He is obese and has high blood pressure. EKG sinus tachycardia without ST elevation or depression. Troponins are negative. Stress test and process step 1 has been completed, step 2 completed and is abnormal. Stress with ischemia noted in inferior wall per report. Cardiology was consult and saw the patient. They recommended a left heart catheter which will be done today 09/04. All questions were answered by the cardiology group Aspirin 324 mg in the ED and now 81 mg daily Metoprolol 5 mg IV push for systolic blood pressure greater than 150 O2 to keep sats greater than 92%. Sublingual nitroglycerin as needed for chest pain Heparin 5000 units subcutaneous twice a day Echo report reviewed with LVEF 55-60%. Not all LV wall segments are optimally visualized. Mild left ventricular diastolic dysfunction. RV is dilated. Function appears normal. Mild mitral regurgitation. Suboptimal TR signal to estimate RVSP. IVC is not visualized. Left ventricular wall motion rest echo findings are the apex, apical lateral mid inferior lateral and basal inferior lateral martinez were not visualized I will other wall segments showed normal motion Continuous telemetry monitoring. Monitor labs Lipid panel triglycerides 154, cholesterol 214, LDL 150, HDL 33, TSH 3.9-3 Continue simvastatin Qualifiers: Chest pain type: unspecified Qualified Code(s): R07.9 - Chest pain, unspecified (3) Hypertension Current Visit: Yes Status: Acute Assessment and plan: Patient was admitted with accelerated hypertension but now his blood pressure is well controlled on his medication regime. Higher today with oral meds held for testing According to the note he initially presented with a pressure of 205/107. Blood pressure improved with one sublingual nitroglycerin and then he became hypotensive which quickly rebounded with a systolic blood pressure 1:15. He was then hemodynamically stable. As his high blood pressure improved so did his chest pain. He has no prior history of hypertension but he is reporting high blood pressure for the past week and he has been keeping a journal of his blood pressure and working with his PCP to improve his blood pressure. He has an outpatient appointment scheduled with cardiology. Continue metipranolol IV push every 6 hours when necessary for systolic blood pressure greater than 160. He was to see pattern fitter on the as an outpatient for blood pressure consult Qualifiers: Hypertension type: essential hypertension Qualified Code(s): I10 - Essential (primary) hypertension (4) Obesity Current Visit: Yes Status: Acute Assessment and plan: Lifestyle changes with weight reduction diet and activity Qualifiers: Obesity type: unspecified obesity type Serious obesity comorbidity presence : without serious comorbidity Body mass index: BMI 45.0-49.9 Qualified Code( s): E66.9 - Obesity, unspecified; Z68.42 - Body mass index (BMI) 45.0-49.9, adult; Z68.42 - Body mass index (BMI) 45.0-49.9, adult; Z68.42 - Body mass index (BMI) 45.0-49.9, adult; Z68.42 - Body mass index (BMI) 45.0-49.9, adult (5) Hyperglycemia Current Visit: Yes Status: Acute Assessment and plan: Accu checks before meals and at bedtime with low-dose sliding scale coverage as needed. Trend while inpatient. Patient is not a known diabetic Hgb A1c is 6.1 Defer to primary care physician for management (6) DVT prophylaxis Current Visit: Yes Status: Acute Assessment and plan: Heparin subcu - Subjective Interval history: Patient is lying in the bed. His family is at the bedside. Preservative Filler Machine Operator was tested and talked about his abnormal stress test. He states it has a lot to absorb. He is denying any complaints of chest pain shortness of breath fever chills abdominal pain or discomfort. He was explained by cardiology the need for a left heart catheter and he is agreeable and that will be done later today. He had a headache earlier that was treated with Tylenol. . - Constitutional Vitals: Temp Pulse Resp BP Pulse Ox 98.1 F 93 18 169/93 93 03/18 11:44 11/27/17 11:44 11/27/17 11:44 11/27/17 11:44 11/27/17 11:44 General appearance: Present: cooperative, A&O X 3, no acute distress, obese, answers questions appropriately - Head Head exam: Present: atraumatic, normocephalic - Eye Eye exam: Present: PERRL, conjuntiva pink, sclera anicteric Pupils: Present: PERRL - Neck Neck exam general surgery: Present: supple, trachea midline. Absent: lymphadenopathy - Respiratory Respiratory exam: Present: CTAB. Absent: accessory muscle use, rales, rhonchi, wheezes - Cardiovascular Cardiovascular exam: Present: RRR, +S1, +S2. Absent: diastolic murmur, gallop, rubs, systolic murmur - GI/Abdominal GI/Abdominal exam: Present: normal bowel sounds, soft, no peritoneal signs. Absent: distended, tenderness - Extremities Exam Extremities exam: Present: warm, radial pulses palpable and symmetrical. Absent : calf tenderness, cyanotic, pedal edema - Neurological Exam Neurological exam: Present: alert, CN II-XII intact, oriented X3, no focal deficits. Absent: pronater drift, facial droop, speech deficit - Skin Skin exam: Present: dry, intact, normal color, warm Internal Medicine: Result - Labs CBC & Chem 7: 11/26/17 04:41 11/26/17 04:41 - ABG Interpretation ABG results: PT/INR, D-dimer PT 11.6 Seconds (9.4-12.1) 11/24/17 18:43 Consult Discharge Plan - Plan Referrals: Osman Martino Jr, MD [Primary Care Provider] -
[2017-11-27] MEDS ORDERED: Verapamil 5 MG/2 ML VIAL ONE (14:58)
[2017-11-27] MEDS ORDERED: *HR* Heparin 10,000 UNIT/10 ML VIAL ONE (14:58)
[2017-11-27] MEDS ORDERED: Nitroglycerin 1,000 MCG/10 ML VIAL IV ONE (14:58)
[2017-11-27] MEDS ORDERED: ISOVUE-370 200 ML INFUS..BTL IV ONE (14:58)
[2017-11-27] MEDS ORDERED: Heparin 1,000 UNITS/500 mL 500 ML ONE (14:58)
[2017-11-27] MEDS ORDERED: 0.9 % Sodium Chloride 1,000 ML ONE ×2 (14:58→16:17)
[2017-11-27] MEDS ORDERED: *HR* FentaNYL (PF) 100 MCG/2 ML VIAL ONE (16:17)
[2017-11-27] MEDS ORDERED: *HR* Midazolam HCl 2 MG/2 ML VIAL ONE ×2 (16:17→16:42)
--- NOTE | 2017-11-27 16:30 | Pre-Sedation Evaluation ---
Pre-sedation evaluation - Pre-sedation checklist Date of procedure: 11/27/17 Procedure: cardiac cath Recent Vitals: Last Vital Signs Temp 98.3 F 11/27/17 15:30 Pulse 86 11/27/17 15:30 Resp 18 11/27/17 15:30 BP 144/73 11/27/17 15:30 Pulse Ox 94 11/27/17 15:30 H&P (including ROS) documented in medical record: Yes Previous reaction to sedatives/anesthetics: No Dietary Status: No solid food in preceding 4 hrs and no liquid in preceding 2 hrs Dentition: No loose teeth or bridges ASA Classification *see protocol: CLASS II-Mild systemic disease Plan of Care: Pt appropriate candidate for procedure/moderate/conscious sedation , Risks/benefits of procedure/sedation discussed w/ patient/family
--- NOTE | 2017-11-27 16:33 | Electrocardiograph Report ---
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
--- NOTE | 2017-11-27 17:10 | Event Note ---
Date of Encounter: 11/27/17 Time of Encounter: 17:10 - Cardiology Event Note Minimal CAD, nml EF.
--- NOTE | 2017-11-27 17:22 | Invasive Diagnostic Lab Proc ---
Name: Jsoe Quarles Date of Study: 11/27/2017 Date: 1950 Ht: 75.2in Medical Record#: [id number] Age: 67 Wt: 388.01lb Gender: Male BSA: 2.91 Order #: [id number] BMI: 48.24 Physicians Procedure Physician: Gabriel Velázquez MD, [facility] Referring MD: Referring MD: Staff Name Position Time In Sites, Tamera RT (R) Monitor 04:19 PM Rishabh Muñoz RN Sales Donor Recruitment Representative 04:19 PM Anahi Cervantes RT (R) Scrub 04:19 PM Indications Indication Abnormal Test - Stress Procedures Performed Procedure L HRT ARTERY/VENTRICLE ANGIO Pre-Procedure Checklist Informed consent is complete signed and on chart. H&P is on chart. ID band is on and ID verified with patient. Patient NPO for procedure The procedure was described for the patient and questions were answered. Blood Pressure: 146/70 ECG is on chart. Plan of Care Patient will tolerate the procedure without complications. Adequate level of comfort will be maintained. Hemodynamics will remain stable Patient will recover from procedure without complications. Respiratory function will be maintained. Cardiac rhythm will remain stable. Patient temperature will be maintained. Patient and/or family have verbalized understanding of the procedure. Patient Education Chief Complaint/Reason for Test: Cardiac Cath Developmental Category: Geriatric (65+ years) Developmentally Appropriate for Age: Yes Learning Barriers: None Education Needs: Procedure Education Method: Verbal Information Taught: Cardiac Cath Educational Evaluation: Able to repeat information Intravenous Access Time IV Size Location DC'd Fluid/Drip Rate Units RN 20g 1 /" Patent On Arrival Lt Arm 0.9NaCl 25 ml/hr Rishabh Muñoz RN Allergies SULFA Vital Signs Time BP (mmHg) HR (bpm) O2 Sat. RR (bpm) LOC 04:24 PM 174 / 110 90 95 % 20 04:28 PM 170 / 108 96 94 % 31 04:33 PM 169 / 106 93 93 % 16 04:38 PM 177 / 106 92 94 % 18 04:42 PM 170 / 103 88 93 % 20 04:47 PM 143 / 93 101 91 % 04:52 PM 135 / 87 97 94 % 18 04:57 PM 141 / 87 97 92 % 22 05:02 PM 130 / 86 97 93 % 17 Procedural Medications Time Medication Dose Units Method Given By 04:19 PM Oxygen 2 L/min nasal cannula Rishabh Muñoz RN 04:33 PM Versed 2 mg Intravenous Rishabh Muñoz RN 04:33 PM Fentanyl 50 mcg Intravenous Rishabh Muñoz RN 04:41 PM Lidocaine 2% 0.5 ml Subcutaneous Gabriel Velázquez MD, FACC 04:42 PM Versed 2 mg Intravenous Rishabh Muñoz RN 04:42 PM Fentanyl 25 mcg Intravenous Rishabh Muñoz RN 04:45 PM Hydralazine 10 mg Intravenous Rishabh Muñoz RN 04:46 PM Oxygen 4 L/min nasal cannula Rishabh Muñoz RN ASA Classification: CLASS II- Mild systemic disease (i.e. well-controlled diabetes, hypertension, asthma, cigarette smoking) Mimi Score Preprocedure Postprocedure Activity 2- Moves 4 extremities sustained head lift Activity 2- Moves 4 extremities sustained head lift Circulation 2- SBP +/= 20 points of pre-anesthetic level Circulation 2- SBP +/= 20 points of pre-anesthetic level Consciousness 2- Awake and alert oriented x 3 Consciousness 2- Awake and alert oriented x 3 O2 Saturation 2- Able to maintain O2 satruation of 92% on room air O2 Saturation 2- Able to maintain O2 satruation of 92% on room air Respiratory 2- Able to deep breathe and cough well Respiratory 2- Able to deep breathe and cough well Total Score 10 Total Score 10 Contrast Agent: Isovue Diagnostic Contrast: 103 ml Total Contrast: 103 ml Fluoro Dose: 803 mGy Procedure Log Time Note Enter By 03:20 PM CathStat 04:11 PM Pt arrived to microbiology lab manager [facility] 04[facility] PM Tamera Spangler RT (R) Position: Monitor Time in: 16:19 tsites 04:19 PM Rishabh Muñoz RN Position: Sales Donor Recruitment Representative Time in: 16:19 tsites 04:19 PM Anahi Cervantes RT (R) Position: Scrub Time in: 16:19 tsites 04:19 PM Patient charges- Angio tray pack, Navilyst 3mm J, Pulse Oximetry and ACIST tubing and transducer tsites 04:19 PM Case Delayed No tsites 04:19 PM Physician arrived 16:19 tsites 04:19 PM Meet and greet completed tsites 04:19 PM Sign in performed according to hospital policy. tsites 04:19 PM Procedure start 16:19 tsites 04:20 PM Time: 16:19 Oxygen on at 2 L/min per nasal cannula by Rishabh Muñoz RN tsites 04:20 PM Hair removed from procedure site in holding area using clippers. Right wrist and right groin prepped with Chloraprep by Anahi Cervantes (R), then patient was draped. Skin intact. tsites 04:20 PM Clinical Presentation: Unstable angina tsites 04:21 PM Vitals capture started with the following parameters, Patient=Adult, Interval=5 min, Initial Tevntjoc=400 mmHg, Deflation Rate=3 mmHg, Cuff placed on Right Arm 04:24 PM HR=90 bpm, XKHU=512/110 mmhg, SpO2=95.0 %, Resp=20 B/min 04:26 PM Recorded ECG: HR=97 Condition=Condition 1 04:28 PM HR=96 bpm, MAKJ=798/108 mmhg, SpO2=94.0 %, Resp=31 B/min 04:33 PM HR=93 bpm, WNVV=652/106 mmhg, SpO2=93 %, Resp=16 B/min 04:33 PM Time: 16:33 Versed 2 mg Intravenous Given by Rishabh Muñoz RN tsites 04:33 PM Time: 16:33 Fentanyl 50 mcg Intravenous Given by Rishabh Muñoz RN tsites 04:38 PM HR=92 bpm, NXKU=422/106 mmhg, SpO2=94.0 %, Resp=18 B/min 04:39 PM Pressure channel 1 zeroed. 04:41 PM Time out performed according to hospital policy tsites 04:42 PM Time: 16:41 0.5 ml Lidocaine 2% to right radial Subcutaneous Given by Gabriel Velázquez MD, [facility] tsites 04:42 PM Time: 16:42 Versed 2 mg Intravenous Given by Rishabh Muñoz RN tsites 04:42 PM Time: 16:42 Fentanyl 25 mcg Intravenous Given by Rishabh Muñoz RN tsites 04:42 PM HR=88 bpm, WKNS=026/103 mmhg, SpO2=93.0 %, Resp=20 B/min 04:43 PM Access obtained by percutaneous puncture. 6Fr 10cm Terumo Glidesheath sheath placed in right Radial artery. [id number] tsites 04:44 PM Pressure channel 1 zero failed. 04:44 PM Pressure channel 1 zeroed. 04:44 PM 0.035 260cm Navilyst 3mmJ wire [id number] tsites 04:44 PM Wire removed tsites 04:45 PM 0.035 150cm VSI Jaime-Torque wire [id number] tsites 04:45 PM Time: 16:45 Hydralazine 10 mg Intravenous Given by Rishabh Muñoz RN tsites 04:46 PM Time: 16:46 Oxygen on at 4 L/min per nasal cannula by Rishabh Muñoz RN tsites 04:47 PM BU=546 bpm, VFKI=220/93 mmhg, SpO2=91 % 04:48 PM wire reinserted catheter removed tsites 04:48 PM 5Fr AR catheter inserted over the wire [id number] tsites 04:50 PM wire reinserted catheter removed tsites 04:51 PM 5Fr FL catheter inserted over the wire [id number] tsites 04:52 PM Recorded Pressure: Ao, HR=96, Condition=Condition 1 (Aorta) Ao 126/97/107 04:52 PM HR=97 bpm, FYMY=811/87 mmhg, SpO2=94.0 %, Resp=18 B/min 04:53 PM Recorded Pressure: Ao, BA=142, Condition=Condition 1 (Aorta) Ao 72/-58/-3 04:53 PM LCA angiography performed in multiple views. tsites 04:54 PM wire reinserted catheter removed tsites 04:54 PM 5Fr MPA catheter inserted over the wire [id number] tsites 04:57 PM HR=97 bpm, JLQK=377/87 mmhg, SpO2=92 %, Resp=22 B/min 04:58 PM wire reinserted catheter removed tsites 04:58 PM 5Fr 3DRC catheter inserted over the wire [id number] tsites 04:59 PM RCA angiography performed in multiple views. tsites 04:59 PM Recorded Pressure: Ao, HR=97, Condition=Condition 1 (Aorta) Ao 129/10/70 05:00 PM wire reinserted catheter removed tsites 05:00 PM 5Fr Pigtail catheter inserted over the wire DNC tsites 05:00 PM Catheter selectively placed in left ventricle tsites 05:00 PM Bolus angiogram of left Ventricle complete: 10 ml/sec for a total of 30 mls tsites 05:00 PM Lesion found in Proximal LAD. Pre Stenosis: 15 Pre TONY Flow: tsites 05:00 PM Lesion found in Mid LAD. Pre Stenosis: 15 Pre TONY Flow: tsites 05:02 PM Recorded Pressure: LV, HR=96, Condition=Condition 1 (Left Ventricle) LV 101/13/40 05:02 PM HR=97 bpm, KWJB=627/86 mmhg, SpO2=93 %, Resp=17 B/min 05:03 PM Recorded Pressure: LV, Ao, HR=94, Condition=Condition 1 (Left Ventricle) LV 159/21/34, (Aorta) Ao 153/69/114 05:05 PM wire reinserted catheter removed tsites 05:05 PM Coronary Dominance: right tsites 05:05 PM Proximal Left Anterior Descending Coronary Artery with 15% stenosis. If graft is supplying this territory, 0 % stenosis. tsites 05:05 PM Mid/Distal Left Anterior Descending Coronary Artery and diagonal branches with 15% stenosis. If graft is supplying this area, 0 % stenosis tsites 05:06 PM Procedure completed at 17:06 tsites 05:06 PM Did you address TONY flow and Dominance? Yes tsites 05:06 PM Sign out completed: Radiation Dose 803 mGy Fluoro Time: 7.3 Isovue 370 - 200ml contrast 103 ml given by Gabriel Velázquez MD, [facility]. Complications: NoneCardiac Rehab Consult needed: NoConfirmed administered medications: Yes tsites 05:06 PM Isovue 370 - 200ml,1 Bottle(s) used. tsites 05:06 PM Arterial sheath pulled, Vasc Band closure device used and was Successful S/N. tsites 05:06 PM 12 ml air in Vasc Band. tsites 05:06 PM Estimated Blood Loss: minimal tsites 05:07 PM Post ECG NSR tsites 05:07 PM Post Blood Pressure 130/86 tsites 05:07 PM 17:07 Post Pulses Rt Radial 1+ tsites 05:07 PM Information taught Cardiac Cath and Vasc Band tsites 05:07 PM Education needs Procedure, Plan of Care, and Responsibilities of Patient in Care tsites 05:07 PM Learning barriers :None tsites 05:07 PM Education Methods Verbal tsites 05:07 PM Education evaluation Able to repeat information tsites 05:08 PM Site status No bleeding/hematoma - Rt Wrist as reported by Anahi Cervantes RT (R) at 17:07 tsites 05:12 PM Report given to patricia PAIGE Pt taken to 3B Room #32. 17:12 tsites 05:12 PM Delay to floor No tsites 05:12 PM Patient out of room: 17:12 tsites 05:12 PM Family placed in consult room. tsites Complications Complication None Hemodynamics Pressures Site Systolic/A Wave Diastolic/V Wave Mean AO 126 97 107 AO 72 -58 -3 AO 129 10 70 LV 101 13 40 LV 159 21 34 AO 153 69 114 Post Procedure Information Blood Pressure: 130/86 mmHg Rhythm: NSR Post procedural instructions were given Closure Device Time Device Success/Fail 11/27/2017 5:14:00 PM Mechanical Compression Successful Site Checks Time Location Status Staff Sheath In? Note 05:07 PM Rt Wrist No bleeding/hematoma Aanhi Cervantes RT (R) Pulses Time Site Pre-Procedure Post-Procedure Note Bilateral DP & PT 1+ Bilateral radial 2+ 5:07:00 PM Rt Radial 1+ Updated by Tamera Aníbal, RT (R) on 11/27/2017 5:17:24 PM [facility], RT electronically signed on 11/27/2017 5:17:52 PM with status of Final
--- NOTE | 2017-11-27 18:39 | Electrocardiograph Report ---
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
[2017-11-28] MEDS: Ipratropium/Albuterol Neb 3 ML IH PRN ×2 (03:47→10:54)
[2017-11-28] MEDS: *HR* Heparin 5,000 UNIT/ML VIAL SQ SCH (05:16)
[2017-11-28 06:34] LABS: Hematocrit 44.2 % (37.5-50.1); Hemoglobin 14.5 g/dL (12.9-16.9); Mean Corpuscular HGB Conc 32.8 g/dL (31.6-35.5); Mean Corpuscular Hemoglobin 30.2 pg (28.0-33.3); Mean Corpuscular Volume 92.1 fL (83.0-100.0); Mean Platelet Volume 10.1 fL (9.4-12.4); Platelet Count 177 K/mcL (140-400); Red Cell Distribution Width 14.7 % (11.5-14.5)
[2017-11-28 06:37] LABS: BUN/Creatinine Ratio 15 (6-26); Blood Urea Nitrogen 14 mg/dL (8-23); Carbon Dioxide 23 mEq/L (23-29); Chloride 107 mEq/L (98-107); Glucose 117 mg/dL (70-105); Osmolality,Calculated 286 (280-300); Sodium 137 mEq/L (136-145); eGFR For African Americans > 60 (> 60); eGFR For Non-African Americans > 60 (> 60)
[2017-11-28 06:40] LABS: INR 1.1; Prothrombin Time 12.1 Seconds (9.4-12.1)
--- NOTE | 2017-11-28 07:30 | Electrocardiograph Report ---
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
--- NOTE | 2017-11-28 08:02 | Event Note ---
Date of Encounter: 11/28/17 Time of Encounter: 08:01 - Cardiology Event Note C unofficial report reviewed with mild non-obstructive CAD. Cardiology will sign off. Recommend aggressive risk factor modification.
[2017-11-28] MEDS ORDERED: Aspirin Enteric Coated 81 MG Tablet PO SCH (09:00)
[2017-11-28] MEDS ORDERED: Metoprolol XL (24 HR) Succ 25 MG TAB.ER.24H PO SCH (09:00)
[2017-11-28] MEDS: Multivit/Ca/Min/Fe/FA 1 TAB TABLET PO SCH (09:53)
[2017-11-28] MEDS: Insulin LISPRO 300 UNITS/3 ML VIAL SQ SCH (09:54)
[2017-11-28] MEDS: Budesonide Neb 0.5 MG/2 ML IH SCH (10:54)
[2017-11-28 11:31] VITALS: BP 129/72
--- NOTE | 2017-11-28 13:29 | Discharge Summary ---
- NOTES TO OUTPATIENT PROVIDER Notes to Outpatient Provider: Pt will need follow up with pulmonology for PFTs and continued evaluation of MELISSA. Stress test positive for ischemia, LHC showed mild non-obstructive CAD and cardiology recommends aggressive risk factor modifications. Orders not resulted at time of discharge: Pending orders Date of Encounter: 11/28/17 Time of Encounter: 09:20 - Discharge Diagnosis (1) Abnormal stress test Priority: Secondary Status: Acute Comments: Pt with medium sized, mild-moderate intesity fixed basal to distal inferior and inferolateral wall perfusion defect with normal wall motion, worsening of perfusion during stress involving the distal inferior wall suggesting the presence of reversible ischemia. Gated EF 45% and TID by qulaitative assessment. Pt had LHC yesterday that showed non-obstructive CAD, recommend aggressive risk factor modification, including reduced calorie diet, increasing exercise. (2) Asthma Priority: Secondary Status: Chronic Comments: Mild acute exacerbation with increased SOB over the last 2 months. Pt reports that every morning at 0400 here in the hospital, the heat turns on in his room and he begins feeling SOB and chest tightness. Pt was never a smoker, but has had several jobs with exposure to lung irritants. CTA negative for PE, showed moderate to severe airway inflammation that may be seen with asthma, bronchitis or smoking, no consolidative airspace disease. Pt will need to follow up with pulm, in the meantime he will be sent home with rx for Duonebs and nebulizer, refill for his Albuterol inhaler, and Mucinex for cough. Qualifiers: Asthma severity: mild Asthma persistence: intermittent Asthma complication type: unspecified Qualified Code(s): J45.20 - Mild intermittent asthma, uncomplicated (3) Chest pain Priority: Secondary Status: Acute Comments: Patient denies chest pain today. He presented to the emergency room with chest pain, stress test was positive for ischemia. Patient had LHC yesterday showed nonobstructive coronary artery disease. Patient was evaluated by cardiology and they recommended aggressive risk factor modification. Patient has increased risk factors including hypertension and morbid obesity. He is aware of his need for weight loss and has started a reduced calorie diet. He is aware of the need for exercise, however due to his shortness of breath, he is unable to exercise at this time. Patient will follow with pulmonology after discharge. Qualifiers: Chest pain type: unspecified Qualified Code(s): R07.9 - Chest pain, unspecified (4) Hyperglycemia Priority: Secondary Status: Acute Comments: Hemoglobin A1c 6.1. Patient is on no diabetic medications at home. Patient is working on weight loss, will exercise when able. Follow with primary care for continued evaluation. (5) Hypertension Priority: Secondary Status: Acute Comments: Chronic. Well controlled in the hospital setting. Patient reports multiple episodes of hypertension home. Continue metoprolol XL 12.5 mg by mouth daily. Qualifiers: Hypertension type: essential hypertension Qualified Code(s): I10 - Essential (primary) hypertension (6) Obesity Priority: Secondary Status: Chronic Comments: Chronic. Patient is aware of need for aggressive risk factor modification. Patient has started reduced calorie diet. Qualifiers: Obesity type: due to excess calories Serious obesity comorbidity presence: without serious comorbidity Body mass index: BMI 45.0-49.9 Qualified Code(s) : E66.01 - Morbid (severe) obesity due to excess calories; Z68.42 - Body mass index (BMI) 45.0-49.9, adult; Z68.42 - Body mass index (BMI) 45.0-49.9, adult; Z68.42 - Body mass index (BMI) 45.0-49.9, adult; Z68.42 - Body mass index (BMI) 45.0-49.9, adult (7) Hypertensive urgency Priority: Secondary Status: Resolved (8) DVT prophylaxis Priority: Secondary Status: Acute Comments: Heparin subcutaneous twice daily. (9) HLD (hyperlipidemia) Priority: Secondary Status: Chronic Comments: Pt with HLD, cholesterol 214, triglycerides 154, HDL 33. LDL 150. Patient has been taking Fish oil supplements. Continue these at home, also will start Lipitor 40 mg by mouth at bedtime. Patient requires aggressive risk factor modification for heart disease. Qualifiers: Hyperlipidemia type: unspecified Qualified Code(s): E78.5 - Hyperlipidemia , unspecified Hospital course: Mr. Quarles is a 67 year old male with past medical history of hypertension, asthma, morbid obesity, hyperlipidemia. Patient presented to the emergency department with hypertension for one week. He reports the night before admission his systolic blood pressure was greater than 200 he developed left- sided sharp chest pain with radiation to the left neck and shoulder. He reported that the chest pain syndrome with activity, he had associated shortness of breath as well as diaphoresis. Today, patient reports that he has had worsening shortness of breath, dyspnea on exertion for 2 months. He does have a nonproductive cough and describes chest tightness, and wheezing with environmental irritants. He reports a long history of work related environmental irritants. He reports that he has been getting relief with his DuoNeb's and that he normally has an albuterol inhaler. Patient did not qualify for home O2 on a 6 minute walk. Significant admission, patient had a positive stress test had Count includes the [facility] yesterday that showed nonobstructive coronary artery disease. Cardiology recommends aggressive risk factor modification including weight loss and control of hypertension. He is been placed on Toprol-XL 12.5 mg daily for blood pressure. Patient also will continue aspirin and statin on discharge. Due to increased shortness of breath, patient is unable to exercise at this time. A web request to follow with pulmonology has been entered. Patient has been sent home with prescription for DuoNeb nebs, and nebulizer,, Lipitor, Toprol-XL. Vital signs and labs are stable and within normal limits. Patient is appropriate for discharge. Discharge discussed with: patient, family - Time Spent with Patient Total time spent providing and/or coordinating discharge services: Less than 30 minutes - Discharge Medications Prescriptions: Ipratropium/Albuterol Neb [Duoneb] 3 ml IH [id number] PRN #60 inhsol PRN Reason: Shortness Of Breath Atorvastatin [Lipitor] 40 mg PO HS #30 tablet Metoprolol XL (24 HR) Succ [Toprol Xl] 12.5 mg PO DAILY #15 tab.er.24h Home Medications: Albuterol Sulfate [Proventil Hfa] 2 puff IH QID PRN 11/24/17 [History] Aspirin Enteric Coated [Aspirin EC] 162 mg PO DAILY 11/24/17 [History] Diclofenac Sodium [Voltaren] 75 mg PO BID 11/24/17 [History] Multivitamin [One Daily Multivitamin] 1 each PO DAILY 11/24/17 [History] Nitroglycerin [Nitrostat] 0.4 mg PO Q5M PRN 11/24/17 [History] [place]-3/Dha/Epa/Fish Oil [Fish Oil 1,000 mg Softgel] 1,000 mg PO DAILY 11/24/17 [History] Tamsulosin [Flomax] 0.4 mg PO DAILY 11/24/17 [History] Atorvastatin [Lipitor] 40 mg PO HS #30 tablet 11/28/17 [Rx] Ipratropium/Albuterol Neb [Duoneb] 3 ml IH [id number] PRN #60 inhsol 11/28/17 [Rx] Metoprolol XL (24 HR) Succ [Toprol Xl] 12.5 mg PO DAILY #15 tab.er.24h 11/28/17 [Rx] Nitroglycerin 0.4 mg SL Q5MIN PRN tab.subl 11/28/17 [Rx] Allergies/Adverse Reactions: 3 Allergy/AdvReac Type Severity Reaction Status Date / Time Sulfa (Sulfonamide Allergy Hives Verified 11/24/17 14:12 Antibiotics) Date of admission: 11/24/17 17:02 Primary care physician: Osman Martino Jr, MD Consults: 11/27/17 10:08 Consult to Cardiology [CONS] Routine Comment: Consulting Provider: Cardiology [place] Reason for Consult: abnormal stress Time Notified: 10:08 Call Completed: Yes Discharging clinician: Rena Vera Anticipated date of discharge: 11/28/17 - Constitutional Vitals: Temp Pulse Resp BP Pulse Ox 97.7 F 87 14 129/72 98 11/28/17 11:26 11/28/17 11:26 11/28/17 11:26 11/28/17 11:26 11/28/17 11:26 General appearance: Present: cooperative, A&O X 3, morbidly obese, no acute distress, obese, answers questions appropriately - Head Head exam: Present: atraumatic, normal inspection, normocephalic - Eye Eye exam: Present: normal appearance, conjuntiva pink, sclera anicteric - Neck Neck exam general surgery: Present: normal inspection, supple, trachea midline. Absent: lymphadenopathy, tenderness - Respiratory Respiratory exam: Present: decreased breath sounds, CTAB. Absent: accessory muscle use, chest wall tenderness, rales, respiratory distress, rhonchi, wheezes - Cardiovascular Cardiovascular exam: Present: RRR, +S1, +S2. Absent: diastolic murmur, gallop, rubs, systolic murmur - GI/Abdominal GI/Abdominal exam: Present: normal bowel sounds, soft. Absent: distended, hepatomegaly, tenderness - Extremities Exam Extremities exam: Present: normal capillary refill, warm, radial pulses palpable and symmetrical. Absent: calf tenderness, cyanotic, pedal edema, tenderness - Neurological Exam Neurological exam: Present: alert, oriented X3, no focal deficits. Absent: facial droop, speech deficit - Skin Skin exam: Present: dry, intact, normal color, warm. Absent: rash - Patient Status Disposition: Home, Self-Care Condition: Fair Functional capacity at discharge: independent ambulation Overall status at discharge: patient is progressing back to baseline - Discharge Instructions Follow Up With: [facility] [Provider Group] (We have web requested you an appointment ) Osman Martino Jr, MD [Primary Care Provider] - Additional Instructions: Please follow up with Dr. Martino as scheduled and within the next 7-10 days. Return to the ER as needed for any other problems or concerns or if your symptoms return or worsen. Take your medications as directed, your blood pressure has been well controlled in the hospital, continue your current medication. Resume your 1200 calorie diet and incorporate exercise when you are able. Follow up with pulmonology as scheduled. Use your nebulizer and Duonebs as needed for shortness or breath and/or wheezing. - Diet and Activity Activity: increase activity as tolerated Diet: low fat, low cholesterol, low salt diet
== END 2017-11-28 17:27 | disposition home or self-care (01) ==
LOC: 3BNU 14:08 → EMEROO 14:08 → 3BNU 17:15
PROVIDERS: ADMIT Family Medicine; ATTEND Registered Nurse